=== PATIENT | female | born 1965 | race Caucasian/White ===

== ENCOUNTER → 2017-05-18 | Outpatient (CLI) | payer BC | LOC: MC.RAD 11:38 | DX: Z12.31 Encounter for screening mammogram for malignant neoplasm of breast (principal) ==

== ENCOUNTER → 2018-03-02 | Outpatient (CLI) | payer BC ==
[~2018-03-02] VITALS: Ht 165.1 cm; Wt 71.1 kg
[~2018-03-02] MED LIST: FLEXERIL 1010 MG/TAB PO; MEVACOR 20M20 MG/TAB PO; NORCO 325 MG-51 TAB PO
[2018-03-02 10:40] VITALS: BP 127/82; PULSE 56
[2018-03-02 11:55] VITALS: BP 140/93; PULSE 63
[2018-03-02 12:13] VITALS: BP 131/76; PULSE 58
== END ==
LOC: COL.RAD 10:00
DX: M51.37 Other intervertebral disc degeneration, lumbosacral region (principal); Z85.820 Personal history of malignant melanoma of skin
CPT/HCPCS: J3301

== ENCOUNTER → 2018-06-06 | Outpatient (CLI) | payer BC | LOC: MC.RAD 09:40 | DX: Z12.31 Encounter for screening mammogram for malignant neoplasm of breast (principal) ==

== ENCOUNTER → 2019-06-29 | Outpatient (CLI) | payer BC | LOC: MC.RAD 09:15 | DX: Z12.31 Encounter for screening mammogram for malignant neoplasm of breast (principal); N63.10 Unspecified lump in the right breast, unspecified quadrant ==

== ENCOUNTER → 2019-07-05 | Outpatient (CLI) | payer BC | LOC: MC.RAD 09:34 | DX: N60.01 Solitary cyst of right breast (principal) ==

== ENCOUNTER → 2020-08-28 | Outpatient (CLI) | payer BC | LOC: MC.RAD 09:15 | DX: Z12.31 Encounter for screening mammogram for malignant neoplasm of breast (principal) ==

== ENCOUNTER → 2021-09-22 | Outpatient (CLI) | payer BC | LOC: MC.RAD 11:39 | DX: Z12.31 Encounter for screening mammogram for malignant neoplasm of breast (principal) ==

== ENCOUNTER 2021-11-04 08:31 | Day surgery (SDC) | payer BC ==
[~2021-11-04] VITALS: Ht 165.1 cm; Wt 72.3 kg
[2021-11-04] MEDS ORDERED: DOXYCYCLINE 10100 MG PO (08:57)
[2021-11-04] MEDS ORDERED: PLAQUENIL 200M200 MG PO (08:57)
[2021-11-04] MEDS ORDERED: SINGULAIR 110 MG/TAB PO (08:58)
[2021-11-04] MEDS ORDERED: MINOXIDIL 5% TOP (08:59)
[2021-11-04] MEDS ORDERED: TURMERIC500 MG PO (09:00)
[2021-11-04] MEDS ORDERED: NATURE'S BLE1000 MCG PO (09:00)
[2021-11-04] MEDS ORDERED: CLOBETASOL (09:00)
[2021-11-04 09:25] VITALS: BP 125/91; PULSE 70; TEMP 98.4
[2021-11-04 10:10] VITALS: BP 114/77; PULSE 66; TEMP 97.8
[2021-11-04 10:15] VITALS: BP 111/100; PULSE 64
[2021-11-04 10:30] VITALS: BP 113/90; PULSE 69
[2021-11-04 10:45] VITALS: BP 112/59; PULSE 71
--- NOTE | 2021-11-04 11:00 | NUR ---
1010 Pt returns from endo procedure via cart and RN assist to [facility]. Pt ambulates from cart to recliner with RN assist. Monitors on and alarms set. Call light within reach. Report received from GHASSAN Domínguez. Pt alert and oriented. Pt requests muffin and juice. Pt denies any pain or nausea. 1020 Pt taking food and drink well. No complications noted. 1050 Discharge instructions given to pt. All questions answered to her satisfaction. Handed to pt are a thank you card and discharge information. 1100 Pt transferred out of the hospital via wheelchair and Kody assist, to private vehicle driven by pt's .
== END 2021-11-04 11:00 | disposition home or self-care (01) ==
LOC: SDCO 08:31
DX: R19.5 Other fecal abnormalities (principal); D12.3 Benign neoplasm of transverse colon; D12.8 Benign neoplasm of rectum; K57.30 Diverticulosis of large intestine without perforation or abscess without bleeding; K62.89 Other specified diseases of anus and rectum; K90.0 Celiac disease; E78.5 Hyperlipidemia, unspecified; E78.00 Pure hypercholesterolemia, unspecified; J30.9 Allergic rhinitis, unspecified; G47.00 Insomnia, unspecified; M17.11 Unilateral primary osteoarthritis, right knee; L90.0 Lichen sclerosus et atrophicus; L43.9 Lichen planus, unspecified; L65.9 Nonscarring hair loss, unspecified; Z79.899 Other long term (current) drug therapy; Z85.828 Personal history of other malignant neoplasm of skin
CPT/HCPCS: J2704; J7030

== ENCOUNTER → 2022-11-03 | Outpatient (CLI) | payer BC ==
[~2022-11-03] MED LIST changes: +AMOXICILLIN 8751 TAB PO; +CLOBETASOL; +DOXYCYCLINE 10100 MG PO; +MINOXIDIL 5% TOP; +NATURE'S BLE1000 MCG PO; +PLAQUENIL 200M200 MG PO; +SINGULAIR 110 MG/TAB PO; +TURMERIC500 MG PO
== END ==
LOC: MC.RAD 14:28
DX: Z12.31 Encounter for screening mammogram for malignant neoplasm of breast (principal)

== ENCOUNTER → 2023-12-01 | Outpatient (CLI) | payer BC | LOC: MC.RAD 07:45 | DX: Z12.31 Encounter for screening mammogram for malignant neoplasm of breast (principal) ==